=== PATIENT | male | born 1950 | race African-American/Black ===

== ENCOUNTER 2018-01-24 09:45 | Emergency (ER) | payer MEDICARE ==
[2018-01-24] MEDS ORDERED: Dextrose 50% Abboject 50 ML SYRINGE ONE (10:26)
[2018-01-24] MEDS ORDERED: Tamsulosin HCl 0.4 MG CAP ONE (10:26)
[2018-01-24 10:31] LABS: Prothrombin Time 13.5 SEC (12.0-14.7)
[2018-01-24 10:56] LABS: CKMB 6.4 ng/mL (0-6.6); Troponin I Less than 0.010 ng/mL (< 0.028)
[2018-01-24 10:57] LABS: Sodium 138 mmol/L (136-145)
[2018-01-24 11:00] LABS: #Basophils 0.1 thou/uL (0.0-0.2); #Lymphocytes 0.8 thou/uL (1.20-3.40); #Monocytes 0.3 thou/uL (0.11-0.59); #Neutrophils 6.3 thou/uL (1.40-6.50); %Eosinophils 0.4 % (0.0-10.0); %Lymphocytes 10.4 % (21.0-51.0); %Monocytes 4.4 % (0.0-10.0); %Neutrophils 83.7 % (42.0-75.0); Hemoglobin 13.1 g/dL (14.0-18.0); Mean Corpuscular HGB CONC 32.5 g/dL (32.0-36.0); Mean Corpuscular Hemoglobin 30.6 pg (27.0-31.0); Mean Corpuscular Volume 94.1 fL (78.0-98.0); Mean Platelet Volume 6.2 fL (7.4-10.4); Platelet Count 209 thou/uL (130-400); RBC Distribution Width 13.5 % (11.5-14.5); Red Blood Cell (RBC) Count 4.27 mill/uL (4.70-6.10); White Blood Cell (WBC) Count 7.5 thou/uL (4.8-10.8)
[2018-01-24 11:04] LABS: ALT (SGPT) 89 U/L (8-55); AST (SGOT) 184 U/L (5-34); Albumin 4.4 g/dL (3.4-4.8); Alkaline Phosphatase 120 U/L (40-150); Anion Gap 21 mmol/L (10-20); BUN (Urea Nitrogen) 5 mg/dL (8.4-25.7); Bilirubin, Total 1.1 mg/dL (0.2-1.2); CK (CPK) 393 U/L (30-200); Calc. Creatinine Clearance 0 mL/min (70-130); Calcium 8.9 mg/dL (7.8-10.44); Carbon Dioxide 23 mmol/L (23-31); Chloride 98 mmol/L (98-107); Estimated GFR-MDRD Greater than 90; Globulin 3.2 g/dL (2.4-3.5); Potassium 4.3 mmol/L (3.5-5.1); Protein, Total 7.6 g/dL (5.8-8.1)
[2018-01-24 11:08] LABS: Glucose 59 mg/dL (80-115)
[2018-01-24 12:04] LABS: Bilirubin Negative (Negative); Blood, Urine Trace (Negative); Clarity Clear (Clear); Glucose, Urine (Dipstick) 500 mg/dL (Negative); Leukocyte Negative (Negative); Nitrite Negative (Negative); Protein, Urine (Dipstick) Negative (Neg-Trace); Urobilinogen 0.2 mg/dL (0.2-1.0)
[2018-01-24 12:12] LABS: Amphetamine Not Detected (NotDetected); Barbiturates Screen Not Detected (NotDetected); Benzodiazepine Screen Not Detected (NotDetected); Cocaine Metabolite Screen Not Detected (NotDetected); Medtox Control Line Valid? VALID (VALID); Methadone Not Detected (NotDetected); Methamphetamine Not Detected (NotDetected); Opiate Screen Not Detected (NotDetected); Oxycodone Screen Not Detected (NotDetected); Phencyclidine (PCP) Not Detected (NotDetected); THC/Cannabinoid Screen Not Detected (NotDetected); Tricyclic Screen Not Detected (NotDetected)
[2018-01-24 12:14] LABS: Bacteria/HPF Rare-Few HPF (None Seen); RBC/HPF 0-3 HPF (0-3); Squamous Epithelial 0-3 HPF (0-3); WBC/HPF None Seen HPF (0-3)
--- NOTE | 2018-01-24 12:23 | RAD ---
AP VIEW CHEST: INDICATIONS: History of syncope. COMPARISON: 04/01/2017 FINDINGS: The lungs are clear. Retained metallic density overlying the left mediastinum is stable. Scarring i nvolving the left mid lung is similar. No pleural effusion or pneumothorax is evident. No acute oss eous abnormality is evident. Vascular calcification of the aortic arch is similar. IMPRESSION: No acute cardiopulmonary abnormality. POS: [facility]
[2018-01-24 12:57] LABS: Acetaminophen Less than 6.0 mcg/mL (10.0-30.0); Alcohol 246 mg/dL (Less than 10); Salicylate Less than 8.0 mg/dL (15.0-30.0)
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
[2018-01-24 17:36] LABS: Hemoglobin A1c 5.5 % (4.0-6.0)
== END 2018-01-24 13:55 | disposition home or self-care (01) ==
LOC: MADERS 09:45
DX: K70.9 Alcoholic liver disease, unspecified (principal); F10.129 Alcohol abuse with intoxication, unspecified; F17.210 Nicotine dependence, cigarettes, uncomplicated; Y90.8 Blood alcohol level of 240 mg/100 ml or more
CPT/HCPCS: 36415; 36416; 70450; 71045; 80053; 80306; 80307; 81001; 82550; 82553; 83036; 83880; 84484; 85025; 85610; 85730; 87086; 93005; 94760; J1610

== ENCOUNTER 2019-01-17 14:41 | Emergency (ER) | payer MEDICARE | END 2019-01-17 16:46 | disposition home or self-care (01) | LOC: MADERS 14:41 | DX: E16.2 Hypoglycemia, unspecified (principal); F17.210 Nicotine dependence, cigarettes, uncomplicated | CPT/HCPCS: 36416; 99406 ==

== ENCOUNTER 2019-03-02 09:52 | Emergency (ER) | payer MEDICARE ==
[2019-03-02 10:08] LABS: #Lymphocytes 0.5 thou/uL (1.20-3.40); #Monocytes 0.2 thou/uL (0.11-0.59); #Neutrophils 4.4 thou/uL (1.40-6.50); %Basophils 0.4 % (0.0-1.0); %Monocytes 3.3 % (0.0-10.0); %Neutrophils 87.3 % (42.0-75.0); Hemoglobin 13.5 g/dL (14.0-18.0); Mean Corpuscular HGB CONC 33.1 g/dL (32.0-36.0); Mean Corpuscular Volume 99.8 fL (78.0-98.0); Mean Platelet Volume 5.9 fL (7.4-10.4); Platelet Count 179 thou/uL (130-400); RBC Distribution Width 13.2 % (11.5-14.5); Red Blood Cell (RBC) Count 4.09 mill/uL (4.70-6.10); White Blood Cell (WBC) Count 5.1 thou/uL (4.8-10.8)
[2019-03-02] MEDS ORDERED: Thiamine HCl 200 MG/2 ML VIAL ONE (10:21)
[2019-03-02] MEDS ORDERED: Dextrose 5 %-0.45 % NaCl 1,000 ML ONE (10:21)
[2019-03-02 10:25] LABS: Bilirubin Negative (Negative); Blood, Urine Moderate (Negative); Glucose, Urine (Dipstick) Negative (Negative); Leukocyte Negative (Negative); Nitrite Negative (Negative); Protein, Urine (Dipstick) Negative (Neg-Trace); Urobilinogen 0.2 mg/dL (Less than 2)
[2019-03-02 10:28] LABS: ALT (SGPT) 30 U/L (8-55); AST (SGOT) 75 U/L (5-34); Albumin 3.4 g/dL (3.4-4.8); Alkaline Phosphatase 109 U/L (40-150); Anion Gap 25 mmol/L (10-20); BUN (Urea Nitrogen) 5 mg/dL (8.4-25.7); Bilirubin, Total 1.3 mg/dL (0.2-1.2); CK (CPK) 677 U/L (30-200); Calc. Creatinine Clearance 0 mL/min (70-130); Calcium 7.6 mg/dL (7.8-10.44); Carbon Dioxide 19 mmol/L (23-31); Chloride 100 mmol/L (98-107); Estimated GFR-MDRD Greater than 90; Globulin 2.9 g/dL (2.4-3.5); Glucose 126 mg/dL (80-115); Potassium 4.1 mmol/L (3.5-5.1); Protein, Total 6.3 g/dL (5.8-8.1); Sodium 140 mmol/L (136-145)
[2019-03-02 10:28] LABS: Clarity Hazy (Clear)
[2019-03-02 10:29] LABS: Acetaminophen Less than 6.0 mcg/mL (10.0-30.0); Alcohol 170 mg/dL (Less than 10); Magnesium 1.5 mg/dL (1.6-2.6); Salicylate Less than 8.0 mg/dL (15.0-30.0)
[2019-03-02 10:30] LABS: Bacteria/HPF Rare-Few HPF (None Seen); RBC/HPF 0-3 HPF (0-3); Squamous Epithelial 0-3 HPF (0-3); WBC/HPF None Seen HPF (0-3)
[2019-03-02 10:31] LABS: Amphetamine Not Detected (NotDetected); Barbiturates Screen Not Detected (NotDetected); Benzodiazepine Screen Not Detected (NotDetected); Cocaine Metabolite Screen Detected (NotDetected); Medtox Control Line Valid? VALID (VALID); Methadone Not Detected (NotDetected); Methamphetamine Not Detected (NotDetected); Opiate Screen Not Detected (NotDetected); Oxycodone Screen Not Detected (NotDetected); Phencyclidine (PCP) Not Detected (NotDetected); THC/Cannabinoid Screen Not Detected (NotDetected); Tricyclic Screen Not Detected (NotDetected)
--- NOTE | 2019-03-02 10:37 | CT ---
CT BRAIN WITHOUT CONTRAST: HISTORY: Altered mental status. COMPARISON: 01/24/2018 FINDINGS: Changes of cortical atrophy and chronic small vessel ischemic disease are again seen. The ventricula r size is stable, and the basilar cisterns are patent. Artifact from metal in the left supraorbital region is again noted. 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 An MRI would be helpful in differentiating between an arachnoid cyst and a dermoid. The bony calvarium is intact. IMPRESSION: Stable examination. No evidence of acute intracranial process. POS: ED
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
[2019-03-02] MEDS ORDERED: Magnesium 2 GM/50 ML BAG (IN WATER) ONE (10:55)
[2019-03-02] MEDS ORDERED: Sodium Chloride 0.9% 100 ML ONE (11:34)
[2019-03-02] MEDS ORDERED: cefTRIAXone\\ROCEPHIN 1 GM VIAL ONE (11:34)
[2019-03-02] MEDS ORDERED: Lorazepam 2 MG/ML VIAL ONE (12:22)
== END 2019-03-02 12:34 | disposition short-term general hospital (02) ==
LOC: MADERS 09:52
DX: E88.89 Other specified metabolic disorders (principal); F10.239 Alcohol dependence with withdrawal, unspecified; E16.2 Hypoglycemia, unspecified; F14.10 Cocaine abuse, uncomplicated; E83.51 Hypocalcemia; E83.42 Hypomagnesemia; J18.1 Lobar pneumonia, unspecified organism; M60.9 Myositis, unspecified; I45.81 Long QT syndrome; I10 Essential (primary) hypertension; F17.210 Nicotine dependence, cigarettes, uncomplicated
CPT/HCPCS: 36416; 51702; 70450; 71250; 72125; 74177; 80053; 80306; 80307; 81003; 81015; 82550; 83605; 83735; 84443; 84484; 85025; 93005; 94760; 96365; 96367; 96375; J0696; J2060; J3411; J3475; J3490; J7042